=== PATIENT | female | born 1965 | race Caucasian/White ===

== ENCOUNTER 2017-06-08 00:41 | Inpatient (IN) | payer OTHER ==
[~2017-06-08] VITALS: Ht 165.1 cm; Wt 121.5 kg
--- NOTE | ~2017-06-08 | EKG ---
[address] [place] [address] ELECTROCARDIOGRAM REPORT Name: FRANCHESCA CHANDLER Room #: 359-P [facility] IN M.R.#: [id number] Admission: 06/08/17 Attend Phys: Dl Ramirez MD Discharge: 06/08/17 Date of : 69 Report #: [id number] THIS REPORT FOR: //name// [facility] Test Date: 2017-06-08 Test Time: 03:56:55 Pat Name: FRANCEHSCA CHANDLER Department: Room: 359 Gender: F Char Conveyor Tender: quintin carlson : 1965 Requested By: Ca Henao Order Number: [id number] MD: Thomas Zapata Measurements Intervals [place] Rate: 86 P: 47 SC: 145 QRS: -7 QRSD: 77 T: 4 QT: 366 QTc: 438 Interpretive Statements Sinus rhythm Inferior infarct, old Poor R wave progression Compared to ECG 06/11/2015 19:49:21 Inferior Q waves are more prominent Electronically Signed On 06-10-2017 7:23:45 ENVELOPE STUFFER by Thomas Zapata [email or web address] <ELECTRONICALLY SIGNED> By: Thomas Zapata MD, [facility] 06/10/17 0723 0356 0356 Thomas Zapata MD, [facility] /EPI
--- NOTE | ~2017-06-08 | 2DMMODE ---
[facility] [address] [address] 2 D/M-MODE ECHOCARDIOGRAM Name: CHANDLERFRANCHESCA O Room #: 359-P [facility] IN ..#: [id number] Admission: 06/08/17 Attend Phys: Dl Ramirez, Discharge: Date of : 69 Date of Service: 06/08/17 1246 Report #: [id number] THIS REPORT FOR: //name// APPROVED REPORT Study performed: 06/08/2017 09:08:51 EXAM: Comprehensive 2D, Doppler, and color-flow Echocardiogram Patient Location: Bedside Room #: 359 Status: routine BSA: 2.24 HR: 71 bpm BP: 103/63 mmHg Other Information Study Quality: Adequate Indications CAD Chest Pain Hypertension/HDD 2D Dimensions RVDd: 28.14 mm LVEF(%): 65.99 (>50%) IVSd: 11.10 (7-11mm) LVOT Diam: 17.96 (18-24mm) LVDd: 36.49 mm PWd: 12.15 (7-11mm) Ascending Ao: 25.72 (22-36mm) LVDs: 23.50 (25-40mm) Aortic Root: 27.68 mm IVC: 18.00 mm Brandon's LVEF: 65.99 % Volumes Left Atrial Volume (Systole) Single Plane 4CH: 21.97 mL Single Plane 2CH: 34.37 mL LA ESV Index: 13.00 mL/m2 Aortic Valve AoV Peak Luis.: 1.58 m/s AO Peak Gr.: 9.98 mmHg LVOT Max P.56 mmHg LVOT Max V: 1.28 m/s FILIPE Vmax: 2.05 cm2 Mitral Valve E/A Ratio: 0.9 [facility] [place] [address] 2 D/M-MODE ECHOCARDIOGRAM Name: FRANCHESCA CHANDLER Room #: 359-P [facility] IN ..#: [id number] Admission: 06/08/17 Attend Phys: Dl Ramirez, Discharge: Date of : 69 Date of Service: 06/08/17 1246 Report #: [id number] MV Decel. Time: 153.32 ms MV E Max Luis.: 0.81 m/s MV A Luis.: 0.93 m/s MV PHT: 44.46 ms IVRT: 86.51 ms Pulmonary Valve PV Peak Luis.: 1.22 m/s PV Peak Gr.: 5.97 mmHg Pulmonary Vein P Vein S: 0.51 m/s P Vein A: 0.31 m/s P Vein D: 0.36 m/s P Vein A Dur.: 100.3 msec P Vein S/D Ratio: 1.42 Tricuspid Valve RAP Estimate: 5.00 mmHg Left Ventricle The left ventricle is normal size. There is normal left ventricular wall thickness. The overall left ventricular systolic function appears normal. LVEF is 55-60%. Mild diastolic dysfunction is present (impaired relaxation pattern). Right Ventricle The right ventricle is normal size. The right ventricular systolic function is normal. Atria The left atrium size is normal. The right atrium size is normal. Aortic Valve The aortic valve is normal in structure. No aortic regurgitation is present. There is no aortic valvular stenosis. Mitral Valve The mitral valve is normal in structure. There is no mitral valve regurgitation noted. No evidence of mitral valve stenosis. Tricuspid Valve The tricuspid valve is normal in structure. There is no tricuspid valve regurgitation noted. Unable to assess PA pressure. Pulmonic Valve The pulmonary valve is normal in structure. There is no pulmonic valvular regurgitation. [address] [address] 2 D/M-MODE ECHOCARDIOGRAM Name: FRANCHESCA CHANDLER Gladis Room #: 359-P [facility] IN [facility]#: [id number] Admission: 06/08/17 Attend Phys: Dl Ramirez, Discharge: Date of : 69 Date of Service: 06/08/17 1246 Report #: [id number] Great Vessels The aortic root is normal in size. IVC is normal in size and collapses >50% with inspiration. Pericardium There is no pericardial effusion. <Conclusion> The left ventricle is normal size. LVEF is 55-60%. Mild diastolic dysfunction is present (impaired relaxation pattern). The left atrium size is normal. The right atrium size is normal. There is no aortic valvular stenosis. There is no tricuspid valve regurgitation noted. Unable to assess PA pressure. The aortic root is normal in size. There is no pericardial effusion. There is no mitral valve regurgitation noted. <ELECTRONICALLY SIGNED> By: Bryn Charles MD, FACC 06/08/17 1246 1246 1246 Bryn Charles MD, FACC /INF
--- NOTE | ~2017-06-08 | HC ---
[facility] [place] [address] CONSULTATION Name: FRANCHESCA CHANDLER Gladis Room #: 359-P [facility] IN M.R.#: [id number] Admission: 06/08/17 Attend Phys: Dl Ramirez MD Discharge: 06/08/17 Date of : 69 Report #: [id number] THIS REPORT FOR: //name// CC: Dl Velasquez HISTORY OF PRESENT ILLNESS: The patient is a 52-year-old female. Longstanding history of lupus. Was lost to Cardiology followup. Had seen Dr. Flood in [place] and then went to [facility] probably a year and a half ago she states with a negative nuclear stress test. Had an LAD stent placed here 4 years ago or so. Has been doing fairly well, but no recent stress testing. Had some discomfort last night, tightness mostly right arm and into her neck and chest. This was seemed to have a pleuritic component to it. She stated she has been more fatigued lately, but otherwise has not had any recurrent chest pain. She has disability, but she still remains active. She takes care of her grandkids. She does not take any remittive agents for her lupus and does follow with Dr. Garcia. She was treated with fentanyl at [facility] and this has resolved. He sees that nitro had no effect on this. EKG is sinus rhythm, delayed R waves, looks like possible old anterior septal infarct and she had anterior hypokinesis at the catheterization 4 years ago. She has been maintained on metformin 500 b.i.d., hydrocodone, Soma, Elavil, levothyroxine, Ativan, Coreg 6.25 b.i.d., Lipitor 40, valsartan not sure of the dose, she believes 80 or 160, ranitidine, Cymbalta and Plavix, although she is also now on Invokana 10 mg a day. PAST MEDICAL HISTORY: Positive for the lupus, coronary artery disease with cardiac stent 2013, mild ischemic cardiomyopathy with anterior apical hypokinesis, hypertension, diabetes, obesity, Sjogren's, fibromyalgia, restless leg, DJD. SOCIAL HISTORY: She is , children are grown, takes care of her grandkids. She has disability. Social alcohol, no tobacco. FAMILY HISTORY: Negative for premature coronary disease. PHYSICAL EXAMINATION: VITAL SIGNS: Blood pressure 110/62, pulse 90. HEENT: Eyes reveal xanthelasmas. Pharynx is clear. NECK: Shows preserved upstrokes without JVD or bruits. LUNGS: Clear. CARDIOVASCULAR: Regular rate and rhythm, S1, S2. ABDOMEN: Soft. No HSM or abdominal bruit. EXTREMITIES: Reveal trace edema. Distal pulses were intact. NEUROLOGIC: Nonfocal. SKIN: Warm and dry without xanthoma or ulcer. There is a faint malar rash on her face. MUSCULOSKELETAL: There is some valgus deformity of the knees, but no inflamed joints. I did not ambulate her. [address] [address] CONSULTATION Name: RAMESHFRANCHESCA Gladis Room #: 359-P [facility] IN M.R.#: [id number] Admission: 06/08/17 Attend Phys: Dl Ramirez MD Discharge: 06/08/17 Date of : 69 Report #: [id number] LABORATORY WORK: Creatinine 1.0, potassium 3.9. GFR is 59. Troponin is negative x 2. Lipids are pending. Hemoglobin and hematocrit is 12 and 39, white count 11.4, platelets 214. ASSESSMENT: 1. Chest pain with pleuritic component, unclear etiology. 2. Coronary artery disease by history with 2014 LAD stent. 3. Mild ischemic cardiomyopathy by history. No heart failure, functional class 1. 4. Systemic lupus erythematosus. 5. Diabetes. 6. Hypertension. 7. Hypercholesterolemia. 8. Obesity. RECOMMENDATIONS AND PLAN: She is pain free. We will check echo Doppler. She feels well. She is ambulating in the fields without incident. This is atypical and was not her presentation at her last stent. Would encourage to favor outpatient nuclear stress testing. We will allow her ambulate and discussed with primary, obtained echo Doppler, so either inpatient or outpatient nuclear testing. We will follow with you. Thank you for asking me to assist in the care of this patient. <ELECTRONICALLY SIGNED> By: Bryn Charles MD, FACC 06/24/17 1427 0907 1812 Bryn Charles MD, FACC /nt
[~2017-06-08 00:41] MED LIST: AMITRIPTYLINE100 MG PO; ASPIRIN81 M2 PO; ATIVAN1 MG PO; ATORVASTATIN CA40 MG PO; BOTOX100 UNIT INJECTION; CARISOPRODOL 3350 MG PO; COREG6.25 MG PO; CYMBALTA60 MG PO; DIOVAN HCT 80-1 EACH PO; DIOVAN40 MG PO; EFFIENT10 MG PO; FARXIGA5 MG PO; FENTANYL PA50 MCG/HR TRANSDERM; GLUCOPHAGE XR500 MG PO; LEVOTHYROXINE0.05 MG PO; LUNESTA3 MG PO; MIRAPEX0.25 MG PO; MIRAPEX0.5 MG PO; NORCO 10-325 T1 EACH PO; PHENERGAN 25 MG25 M1 PO; PILOCARPINE HC7.5 MG PO; PLAVIX 75 MG TA75 M1 PO; TOPAMAX 100 MG100 MG PO; ZANTAC 150MG T150 MG PO; [UNRECOGNIZED DRUG - OTHER] PO
[2017-06-08 01:30] VITALS: BP 132/80
[2017-06-08] MEDS ORDERED: VITAMIN D2000 UNIT PO (02:30)
[2017-06-08] MEDS ORDERED: ULTRAM 50MG TAB50 MG PO (02:34)
[2017-06-08] MEDS ORDERED: BUSPIRONE HCL10 MG PO (02:36)
[2017-06-08] MEDS ORDERED: INVOKANA300 MG PO (02:37)
[2017-06-08] MEDS ORDERED: FLEXERIL PO (02:40)
[2017-06-08] MEDS ORDERED: LANTUS100 UNIT/M SUBQ (02:47)
[2017-06-08] MEDS ORDERED: VISTARIL 25 MG25 M1 PO (02:47)
[2017-06-08] MEDS ORDERED: MOBIC15 MG PO (02:48)
[2017-06-08] MEDS ORDERED: PRILOSEC 20 MG20 MG PO (02:49)
[2017-06-08] MEDS ORDERED: BELSOMRA5 MG PO (02:49)
[2017-06-08] MEDS ORDERED: TOPAMAX 100 MG100 MG PO (02:50)
[2017-06-08] MEDS ORDERED: HYDROCODON-ACE1 EAC5 PO (02:57)
[2017-06-08] MEDS ORDERED: TORADOL 10 MG T10 MG PO (03:12)
[2017-06-08] MEDS ORDERED: BYDUREON P2 MG/0.65 IM (03:13)
[2017-06-08] MEDS ORDERED: BYDUREON P2 MG/0.65 SUBQ (03:15)
[2017-06-08 04:50] VITALS: BP 137/83
[2017-06-08 06:41] LABS: TROPONIN-I < 0.04 ng/mL (<0.06)
[2017-06-08 07:51] LABS: HEMATOCRIT 39.4 % (37.0-47.0); HEMOGLOBIN 12.5 gm/dL (12.0-15.0); MCH 27.7 pg (26.0-34.0); MCHC 31.8 g/dL (28.0-37.0); MCV 87.1 fL (80.0-100.0); RBC 4.52 mil/uL (4.20-5.00); RDW 14.9 % (10.5-14.5); WBC 11.4 thou/uL (4.0-11.0)
[2017-06-08 07:58] LABS: CALCIUM 9.1 mg/dL (8.5-10.1); POTASSIUM 3.9 mmol/L (3.5-5.1)
[2017-06-08 08:38] VITALS: BP 103/63
[2017-06-08 09:11] LABS: CHOLESTEROL 149 mg/dL (<200); HDL CHOLESTEROL 54 mg/dL (>40); LDL CHOLESTEROL 72 mg/dL (<100); TC:HDL 2.8 Ratio (Not establshd); TRIGLYCERIDE 117 mg/dL (<150); VLDL 23 mg/dL (<40)
[2017-06-08 12:45] VITALS: BP 113/50
[2017-06-08 16:19] VITALS: BP 113/50
[2017-06-08 16:55] VITALS: BP 113/50
[2017-06-08 20:09] LABS: GLYCOHEMOGLOBIN (HGB A1C) 9.5 % (4.8-5.6)
[2017-06-08 21:10] LABS: GLYCOHEMOGLOBIN (HGB A1C) 9.5 % (4.8-5.6)
== END 2017-06-08 16:49 | disposition home or self-care (01) | DRG 313 ==
LOC: 3W 00:41
PROVIDERS: Nurse Practitioner; Nurse Practitioner Gerontology
DX: R07.89 Other chest pain (principal); Z68.41 Body mass index [BMI] 40.0-44.9, adult; E11.9 Type 2 diabetes mellitus without complications; I25.10 Atherosclerotic heart disease of native coronary artery without angina pectoris; I10 Essential (primary) hypertension; E03.9 Hypothyroidism, unspecified; M32.9 Systemic lupus erythematosus, unspecified; G25.81 Restless legs syndrome; E66.01 Morbid (severe) obesity due to excess calories; M79.7 Fibromyalgia; I25.5 Ischemic cardiomyopathy; M19.90 Unspecified osteoarthritis, unspecified site; E78.00 Pure hypercholesterolemia, unspecified; Z90.710 Acquired absence of both cervix and uterus; Z95.5 Presence of coronary angioplasty implant and graft; Z82.49 Family history of ischemic heart disease and other diseases of the circulatory system; Z83.3 Family history of diabetes mellitus; Z80.9 Family history of malignant neoplasm, unspecified; Z82.3 Family history of stroke; Z88.1 Allergy status to other antibiotic agents; Z88.8 Allergy status to other drugs, medicaments and biological substances
CPT/HCPCS: 10879

== ENCOUNTER 2018-05-26 15:50 | Inpatient (IN) | payer OTHER ==
[~2018-05-26] VITALS: Ht 5 cm; Wt 123.2 kg
--- NOTE | ~2018-05-26 | HC ---
[facility] [place] [place] [address] CONSULTATION Name: FRANCHESCA CHANDLER Gladis Room #: 217-P [facility] IN M.R.#: [id number] Admission: 05/26/18 Attend Phys: Dl Ramirez MD Discharge: Date of : 69 Report #: [id number] THIS REPORT FOR: //name// CC: Dl SYED PCP DATE OF SERVICE: 05/26/2018 CARDIOLOGY CONSULT: HISTORY OF PRESENT ILLNESS: A 53-year-old female who I actually have seen once in the past is followed intermittently by my group. She comes in with intermittent chest pain, left arm pain basically with numbness occurring since the last couple of weeks, but worse today. Enzymes are negative. There are no acute EKG changes. She had a nuclear test a year ago that was negative for ischemia and that was at [facility]. Her troponin is negative. Her EKG has nonspecific changes. She has had no syncope or presyncope. She is not terribly active. She has underlying obesity and Sjogren's. Apparently, has been compliant with medications. She is pain free. She did receive Lovenox and was borderline hypotensive, so no nitro. LABORATORY DATA: Potassium 3.3, creatinine 1.2, sugars 256. Troponin is negative. H and H are 13 and 41. Chest x-ray, slight elevation of the right hemidiaphragm, minimal atelectasis. PAST MEDICAL HISTORY: Positive for the hypertension, diabetes, hysterectomy, DJD, tonsillectomy, lupus, fibromyalgia, coronary artery disease with a stent placed in 2014 to the LAD, diabetes. HOME MEDICATIONS: Have been metformin, atorvastatin, carvedilol, fentanyl, valsartan, buspirone 15 b.i.d., Invokana 300, insulin, omeprazole, ____, and Toradol. ALLERGIES: CELEBREX, KEFLEX, AUGMENTIN. SOCIAL HISTORY: , with children. No current tobacco. Social alcohol. She does have disability. FAMILY HISTORY: Negative for premature coronary artery disease. PHYSICAL EXAMINATION: VITAL SIGNS: Blood pressure 106/70, pulse 90. HEENT: Eyes reveal xanthelasmas. Pharynx is clear. NECK: Shows preserved upstrokes without JVD, bruits. LUNGS: Clear. CARDIOVASCULAR: Regular rate and rhythm, S1, S2 distant. [facility] [address] [place] [address] CONSULTATION Name: FRANCHESCA CHANDLER Room #: 217-P [facility] IN M.R.#: [id number] Admission: 05/26/18 Attend Phys: Dl Ramirez MD Discharge: Date of : 69 Report #: [id number] ABDOMEN: Soft, obese, nontender. EXTREMITIES: Trace of edema. Distal pulses diminished, but intact. NEUROLOGIC: Nonfocal. SKIN: Warm and dry without xanthoma or ulcer. MUSCULOSKELETAL: Generalized arthritic changes. Mild valgus deformity of the knees. ASSESSMENT: 1. Chest pain consistent with prior angina. 2. Coronary artery disease with history of LAD stent in 2013. 3. Hypertension. 4. Hypercholesterolemia. 5. Obesity. 6. Diabetes. RECOMMENDATIONS AND PLAN: Due to the nature of her symptoms here in an accelerating pattern, we will proceed to the catheterization lab. Dr. Bey had performed a radial intervention. I will ask him to perform catheterization on this patient in the morning. Risks, benefits, alternatives were discussed. We will repeat EKG and obtain echo Doppler in the morning. She will receive a shot of Lovenox tonight, she is pain free and there is no current injury. Thank you for asking me to assist in the care of this patient. By: 2056 0046 Bryn Charles MD, FACC /nt
[2018-05-26 15:50] VITALS: BP 97/48
[~2018-05-26 15:50] MED LIST changes: +BELSOMRA5 MG PO; +BUSPIRONE HCL10 MG PO; +BYDUREON P2 MG/0.65 IM; +BYDUREON P2 MG/0.65 SUBQ; +FLEXERIL PO; +HYDROCODON-ACE1 EAC5 PO; +INVOKANA300 MG PO; +LANTUS100 UNIT/M SUBQ; +MOBIC15 MG PO; +PRILOSEC 20 MG20 MG PO; +TORADOL 10 MG T10 MG PO; +ULTRAM 50MG TAB50 MG PO; +VISTARIL 25 MG25 M1 PO; +VITAMIN D2000 UNIT PO
--- NOTE | 2018-05-26 16:16 | NUR ---
ASSUMED PT CARE FROM HANSEL ARAUJO C/O CHEST PAIN STARED LAST NIGHT, FEELS LIKE HER ARMS ARE HEAVY. DENIES SOA. SEE FULL ASSESSMENT
[2018-05-26 16:22] LABS: ABSOLUTE NEUTROPHILS 3.8 thou/uL (1.4-8.2); BASOPHILS 0.6 % (0.0-2.0); HEMATOCRIT 41.4 % (37.0-47.0); HEMOGLOBIN 13.7 gm/dL (12.0-15.0); MCH 29.5 pg (26.0-34.0); MCHC 33.1 g/dL (28.0-37.0); MCV 89.1 fL (80.0-100.0); MONOCYTES 4.5 % (1.0-8.0); PLATELET COUNT 189 thou/uL (150-400); POLYS 51.9 % (36.0-66.0); RBC 4.65 mil/uL (4.20-5.00); RDW 14.1 % (10.5-14.5); WBC 7.4 thou/uL (4.0-11.0)
--- NOTE | 2018-05-26 16:22 | NUR ---
LEFT SIDED B/P 105/59, HR 87 RIGHT SIDED B/P 104/59 HR 84
[2018-05-26 16:30] LABS: ANION GAP 9 mmol/L (7-16); BUN 13 mg/dL (7-18); CALCIUM 9.7 mg/dL (8.5-10.1); CHLORIDE 101 mmol/L (98-107); CO2 27 mmol/L (21-32); CREATININE 1.2 mg/dL (0.6-1.0); GLUCOSE 256 mg/dL (74-106); POTASSIUM 3.3 mmol/L (3.5-5.1); SODIUM 137 mmol/L (136-145)
[2018-05-26 16:40] LABS: ALBUMIN 3.4 g/dL (3.4-5.0); SGOT 86 U/L (15-37); SGPT 89 U/L (30-65); TOTAL BILIRUBIN 0.5 mg/dL (<0.1-1.0); TROPONIN-I <0.06 ng/mL (<0.06)
--- NOTE | 2018-05-26 16:55 | EKG ---
[place] [address] [address] [place] [address] ELECTROCARDIOGRAM REPORT Name: RAMESHFRANCHESCA [id number] Admission: 05/26/18 Attend Phys: Discharge: Date of : 69 Report #: [id number] THIS REPORT FOR: //name// [facility] ED Test Date: 2018-05-26 Test Time: 15:59:50 Pat Name: FRANCHESCA CHANDLER Department: Room: Gender: F Technical Maintenance Technician: MANFREDSyed : 1965 Requested By: Twin Jones Order Number: [id number] MD: Thomas Zapata Measurements Intervals [place] Rate: 94 P: 54 [place]: 149 QRS: -8 QRSD: 83 T: 2 QT: 353 QTc: 442 Interpretive Statements Sinus rhythm Inferior infarct, old Compared to ECG 06/08/2017 03:56:55 No significant change was found Electronically Signed On 05-26-2018 16:55:32 RESEARCH CONSULTANT by Thomas Zapata [email or web address] <ELECTRONICALLY SIGNED> By: Thomas Zapata MD, [facility] 05/26/18 1655 1559 1559 Thomas Zapata MD, FACC /EPI
[2018-05-26 19:11] VITALS: BP 101/54
[2018-05-26 19:15] VITALS: BP 104/69
[2018-05-26 19:58] VITALS: BP 131/71
[2018-05-26] MEDS ORDERED: OZEMPIC1 MG/0.75 SUBQ (20:37)
[2018-05-27] VITALS (17 sets, daily range): BP systolic 90–137; BP diastolic 48–90
[2018-05-27 04:42] LABS: ALBUMIN 2.8 g/dL (3.4-5.0); ANION GAP 9 mmol/L (7-16); BUN 13 mg/dL (7-18); CALCIUM 8.9 mg/dL (8.5-10.1); CHLORIDE 104 mmol/L (98-107); CHOLESTEROL 144 mg/dL (<200); CO2 26 mmol/L (21-32); GLUCOSE 266 mg/dL (74-106); HDL CHOLESTEROL 39 mg/dL (>40); LDL CHOLESTEROL 56 mg/dL (<100); POTASSIUM 3.3 mmol/L (3.5-5.1); SGOT 49 U/L (15-37); SGPT 69 U/L (30-65); SODIUM 139 mmol/L (136-145); TC:HDL 3.7 Ratio (Not establshd); TOTAL BILIRUBIN 0.4 mg/dL (<0.1-1.0); TOTAL PROTEIN 6.7 g/dL (6.4-8.2); TRIGLYCERIDE 246 mg/dL (<150); TROPONIN-I <0.06 ng/mL (<0.06); VLDL 49 mg/dL (<40)
[2018-05-27 04:43] LABS: ABSOLUTE NEUTROPHILS 3.5 thou/uL (1.4-8.2); BASOPHILS 0.5 % (0.0-2.0); EOSINOPHILS 2.1 % (0.0-3.0); HEMATOCRIT 38.4 % (37.0-47.0); HEMOGLOBIN 12.4 gm/dL (12.0-15.0); LYMPHOCYTES 43.2 % (24.0-44.0); MCH 28.9 pg (26.0-34.0); MCHC 32.3 g/dL (28.0-37.0); MCV 89.5 fL (80.0-100.0); MONOCYTES 5.6 % (1.0-8.0); PLATELET COUNT 172 thou/uL (150-400); POLYS 48.6 % (36.0-66.0); RBC 4.29 mil/uL (4.20-5.00); RDW 14.3 % (10.5-14.5); WBC 7.2 thou/uL (4.0-11.0)
--- NOTE | 2018-05-27 06:22 | NUR ---
ASSUMED CARE OF PATIENT AROUND 2100. PATIENT ARRIVED FROM ER VIA CART W/ TECH TO ROOM 217. PATIENT ADMITTED, CONSENTS SIGNED. PT C/O 11/05 CHEST HEAVINESS WITH NECK NUMBNESS. PT STATES "NOTHING RELIEVES OR EXACERBATES PAIN." MOST OF HOME MEDICATIONS RESTARTED. PATIENT ABLE TO REST MOST OF NIGHT. PRE CATH CHECK LIST COMPLETED, CATH CONSENT SIGNED. ORDERS NOTED FROM CRM ADMINISTRATOR AND DR INMAN. PATIENT ANXIOUS ABOUT PROCEDURE, EDUCATION AND REASSURANCE GIVEN. PT STATES SHE FEELS MORE COMFORTABLE. PROGRESSING TOWARD GOALS, WILL CONTINUE TO MONITOR.
--- NOTE | 2018-05-27 08:18 | EKG ---
[address] [address] ELECTROCARDIOGRAM REPORT Name: CHANDLERFRANCHESCA Room #: 217-P ADM IN M.R.#: [id number] Admission: 05/26/18 Attend Phys: Dl Ramirez MD Discharge: Date of : 69 Report #: [id number] THIS REPORT FOR: //name// [facility] Test Date: 2018-05-26 Test Time: 20:25:12 Pat Name: FRANCHESCA CHANDLER Department: Room: 217 Gender: F Livestock Laborer: Chapin HEAD : 1965 Requested By: Bryn Charles Order Number: [id number] MD: Thomas Zapata Measurements Intervals [place] Rate: 89 P: 37 MI: 154 QRS: -12 QRSD: 82 T: 2 QT: 360 QTc: 439 Interpretive Statements Sinus rhythm Inferior infarct, old Compared to ECG 05/26/2018 15:59:50 No significant changes Electronically Signed On 05-27-2018 8:18:04 CEMENT RUBBER by Thomas Zapata [email or web address] <ELECTRONICALLY SIGNED> By: Thomas Zapata MD, [facility] 05/27/18 0818 24 24 Thomas Zapata MD, [facility] /EPI
--- NOTE | 2018-05-27 08:19 | EKG ---
[address] [place] [address] ELECTROCARDIOGRAM REPORT Name: FRANCHESCA CHANDLER Room #: 217-P ADM IN M.R.#: [id number] Admission: 05/26/18 Attend Phys: Dl Ramirez MD Discharge: Date of : 69 Report #: [id number] THIS REPORT FOR: //name// [facility] Test Date: 2018-05-27 Test Time: 07:20:32 Pat Name: FRANCHESCA CHANDLER Department: Room: 217 P Gender: F Broadband Engineer: NAHID : 1965 Requested By: Bryn Charles Order Number: [id number] MD: Thomas Zapata Measurements Intervals [place] Rate: 91 P: 41 NE: 149 QRS: -7 QRSD: 95 T: 3 QT: 361 QTc: 445 Interpretive Statements Sinus rhythm Borderline T abnormalities, inferior leads Inferior infarct, old Compared to ECG 05/26/2018 15:59:50 No significant change was found Electronically Signed On 05-27-2018 8:19:34 EVENT SECURITY OFFICER by Thomas Zapata [email or web address] <ELECTRONICALLY SIGNED> By: Thomas Zapata MD, [facility] 05/27/18818 9 9 Thomas Zapata MD, [facility] /EPI
--- NOTE | 2018-05-27 08:53 | 2DMMODE ---
[place] [address] [facility] [place] [address] 2 D/M-MODE ECHOCARDIOGRAM Name: RAMESHFRANCHESCA Room #: 217-P [facility] IN ..#: [id number] Admission: 05/26/18 Attend Phys: Dl Ramirez, Discharge: Date of : 69 Date of Service: 05/27/18 0852 Report #: [id number] THIS REPORT FOR: //name// APPROVED REPORT Study performed: 05/27/2018 08:09:13 EXAM: Comprehensive 2D, Doppler, and color-flow Echocardiogram Patient Location: Bedside Room #: 217 Status: routine BSA: 2.26 HR: 95 bpm BP: 95/50 mmHg Rhythm: NSR Other Information Study Quality: Adequate Indications Abnormal EKG, chest pain. Pre angiogram. Hx: RI, stent, HTN, HLP, DM, morbid obesity. 2D Dimensions RVDd: 31.70 mm IVSd: 10.34 (7-11mm) LVOT Diam: 19.55 (18-24mm) LVDd: 41.22 mm PWd: 10.68 (7-11mm) Ascending Ao: 26.14 (22-36mm) LVDs: 27.01 (25-40mm) Aortic Root: 28.65 mm Volumes Left Atrial Volume (Systole) Single Plane 4CH: 35.67 mL Single Plane 2CH: 39.36 mL LA ESV Index: 18.00 mL/m2 Aortic Valve AoV Peak Luis.: 1.49 m/s AO Peak Gr.: 8.91 mmHg LVOT Max P.84 mmHg LVOT Max V: 1.21 m/s FILIPE Vmax: 2.43 cm2 Mitral Valve E/A Ratio: 0.9 MV Decel. Time: 237.88 ms MV E Max Luis.: 0.74 m/s [facility] [place] [address] 2 D/M-MODE ECHOCARDIOGRAM Name: FRANCHESCA CHANDLER Room #: 217-P [facility] IN .R.#: [id number] Admission: 05/26/18 Attend Phys: Dl Ramirez, Discharge: Date of : 69 Date of Service: 05/27/18 0852 Report #: [id number] MV A Luis.: 0.83 m/s MV PHT: 68.99 ms IVRT: 76.12 ms Pulmonary Valve PV Peak Luis.: 1.12 m/s PV Peak Gr.: 5.06 mmHg Pulmonary Vein P Vein S: 0.50 m/s P Vein A: 0.30 m/s P Vein D: 0.31 m/s P Vein A Dur.: 79.6 msec P Vein S/D Ratio: 1.61 Tricuspid Valve TR Peak Luis.: 2.20 m/s RAP Estimate: 5.00 mmHg TR Peak Gr.: 19.44 mmHg PA Pressure: 24.00 mmHg Left Ventricle The left ventricle is normal size. There is normal LV segmental wall motion. There is normal left ventricular wall thickness. Left ventricular systolic function is normal. LVEF is 55-60%. Mild diastolic dysfunction is present (impaired relaxation pattern). Right Ventricle The right ventricle is normal size. The right ventricular systolic function is normal. Atria The left atrium size is normal. The right atrium size is normal. Aortic Valve The aortic valve is normal in structure. No aortic regurgitation is present. There is no aortic valvular stenosis. Mitral Valve The mitral valve is normal in structure. There is no mitral valve regurgitation noted. No evidence of mitral valve stenosis. Tricuspid Valve The tricuspid valve is normal in structure. Trace tricuspid regurgitation. Estimated PAP is 25mmHg. [address] [address] 2 D/M-MODE ECHOCARDIOGRAM Name: FRANCHESCA CHANDLER Gladis Room #: 217-P [facility] IN [facility]#: [id number] Admission: 05/26/18 Attend Phys: Dl Ramirez, Discharge: Date of : 69 Date of Service: 05/27/18 0852 Report #: [id number] Pulmonic Valve Pulmonic valve is not well visualized. Great Vessels The aortic root is normal in size. The ascending aorta is normal in size. IVC is normal in size and collapses >50% with inspiration. Pericardium There is no pericardial effusion. <Conclusion> Left ventricular systolic function is normal. There is normal LV segmental wall motion. LVEF is 55-60%. Mild diastolic dysfunction The aortic valve is normal in structure. No aortic regurgitation or stenosis The mitral valve is normal in structure. No mitral valve regurgitation. Trace tricuspid regurgitation. Estimated pulmonary artery pressure of 25mmHg. There is no pericardial effusion. <ELECTRONICALLY SIGNED> By: Thomas Zapata MD, [facility] 05/27/1852 1 1 Thomas Zapata MD, FACC /INF
--- NOTE | 2018-05-27 15:53 | NUR ---
ASSUMED CARE OF PT AT 0700 THIS SHIFT. PT HAS BEEN COOPERATIVE, HAS HAD PERSISTENT CHEST PAIN. PT HAD CATH DONE THIS SHIFT, RIGHT RADIAL SITE IS INTACT. PT NOW FEELS BETTER, AND IS WANTING TO GO HOME. ASSESSMENTS ARE DOCUMENTED. PT HAS HAD FAMILY VISIT, EDUCATION HAS BEEN PROVIDED. PLAN OF CARE IS TO DISCHARGE PT THIS SHIFT.
--- NOTE | 2018-05-27 15:59 | CATHLAB ---
[place] [address] [address] [facility] [place] [place] [address] INVASIVE PROCEDURE REPORT Name: CHANDLERFRANCHESCA Room #: 217-P [facility]#: [id number] Admission: 05/26/18 Attend Phys: Dl Ramirez, Discharge: Date of : 69 Date of Service: 05/27/18 1558 Report #: [id number] THIS REPORT FOR: //name// APPROVED REPORT Study performed: 05/27/2018 09:16:26 Patient Details Patient Status: In-Patient Room #: The patient is a 53 year-old female Event Personnel Nico Bey Professional Bass Fisherman, Rachna Camarillo RN RN, Emma Up RTR, Tenzin Castro David Monitor Procedures Performed Left Heart Cath w/or w/o Coronaries [id number] [facility] Indication Dyspnea, Chest pain Risk Factors Obesity, Hypercholesterolemia, Coronary Artery Disease Previous Procedures/Diagnoses Previous PCI Procedure Narrative The Right Wrist^ was infiltrated with 1% Lidocaine subcutaneous anesthesia. A TRANSRADIAL SLENDER 6F GLIDESHEATH KIT #[id number] sheath was inserted into the Right Radial Artery^. Coronary angiography was performed using coronary diagnostic catheters. The right coronary system was accessed and visualized with a 5FR JR 4 #[id number] catheter. The left coronary system was accessed and visualized with a 5FR JL 3.5 #[id number] catheter. The left ventricle was accessed and visualized with a 5FR PIG 145 ANGLED #[id number] catheter. Left ventricular/Aortic Valve gradient assessed via catheter pullback. Left ventriculogram was performed in 30 degree projection. Closure device was deployed with a Fr reg. There was [facility] [address] [place] [address] INVASIVE PROCEDURE REPORT Name: FRANCHESCA CHANDLER Room #: 217-P [facility] IN [facility].#: [id number] Admission: 05/26/18 Attend Phys: Dl Ramirez, Discharge: Date of : 69 Date of Service: 05/27/18 1558 Report #: [id number] no hematoma. Intraoperative Conscious Sedation Sedation start time: 9.59 Case end Time: 10.28 Versed 1 mg Fluoro Time: 3.03 minutes Dose: DAP 4954 cGycm2 576 mGy Contrast Type and Amount: Omnipaque 105 ml Coronary Angiography The patient's coronary anatomy is right dominant. Diagnostic Cath Left Main This is a patent vessel, with no flow-limiting lesions. LAD This is a moderate to large caliber vessel, traversing the anterior wall and wrapping around the apex. There is a stent in the mid segment, widely patent with minimal restenosis. Diagonal 1 This is a patent vessel, with no flow-limiting lesions. Diagonal 2 This is a patent vessel, with no flow-limiting lesions. Circumflex This is a patent vessel, with no flow-limiting lesions. OM1 This is a patent vessel, with no flow-limiting lesions. OM2 This is a moderate size caliber vessel, patent with no flow-limiting lesions. It supplies multiple branches as it travels down the lateral wall. Right Coronary This is a dominant vessel with minimal luminal irregularities in the mid segment. R PDA This is a patent vessel, with no flow-limiting lesions. RPLV This is a patent vessel, with no flow-limiting lesions. Left Ventriculography The left ventricle is normal in size with normal contractility. The left ventricular ejection fraction is estimated to be 55-60%. Hemodynamics The aortic pressure is 105/79 mmHg with a mean of 90 mmHg. The left ventricular pressure is 120/12 mmHg with a mean of mmHg. The left ventricular end diastolic pressure is [address] [facility] [address] [place] [address] INVASIVE PROCEDURE REPORT Name: RAMESHFRANCHESCA Room #: 217-P [facility] IN .R.#: [id number] Admission: 05/26/18 Attend Phys: Dl Ramirez, Discharge: Date of : 69 Date of Service: 05/27/18 1558 Report #: [id number] 1. There is a patent stent in the mid segment of the LAD with minimal restenosis. 2. Right dominant system. 3. Normal LV systolic function. 4. Recommend aggressive risk factor management. <ELECTRONICALLY SIGNED> By: Nico Bey MD 05/27/18 1558 1558 1558 Nico Bey MD /INF
[2018-05-27 17:12] LABS: GLYCOHEMOGLOBIN (HGB A1C) 13.9 % (4.8-5.6)
[2018-05-27 19:07] LABS: GLYCOHEMOGLOBIN (HGB A1C) 13.8 % (4.8-5.6)
== END 2018-05-27 17:41 | disposition home or self-care (01) | DRG 287 ==
LOC: ER 15:50 → 2N 17:38 → EROBS 17:38 → 2N 19:30 → ENTRNSPT 05-27 17:35 → 2N 05-27 17:41
PROVIDERS: Internal Medicine Cardiovascular Disease; Nurse Practitioner; Physician Assistant; ADMIT Internal Medicine
DX: R07.89 Other chest pain (principal); N17.9 Acute kidney failure, unspecified; I25.10 Atherosclerotic heart disease of native coronary artery without angina pectoris; M79.7 Fibromyalgia; M32.9 Systemic lupus erythematosus, unspecified; M35.00 Sjogren syndrome, unspecified; G25.81 Restless legs syndrome; I10 Essential (primary) hypertension; M19.90 Unspecified osteoarthritis, unspecified site; R79.89 Other specified abnormal findings of blood chemistry; K21.9 Gastro-esophageal reflux disease without esophagitis; E78.00 Pure hypercholesterolemia, unspecified; E66.9 Obesity, unspecified; E87.6 Hypokalemia; I25.2 Old myocardial infarction; Z95.5 Presence of coronary angioplasty implant and graft; Z90.49 Acquired absence of other specified parts of digestive tract; Z90.710 Acquired absence of both cervix and uterus; Z79.4 Long term (current) use of insulin; Z79.84 Long term (current) use of oral hypoglycemic drugs; Z79.899 Other long term (current) drug therapy; Z88.1 Allergy status to other antibiotic agents; Z88.8 Allergy status to other drugs, medicaments and biological substances; Z82.49 Family history of ischemic heart disease and other diseases of the circulatory system; Z98.61 Coronary angioplasty status
CPT/HCPCS: 10081

== ENCOUNTER 2018-07-16 17:01 | Inpatient (IN) | payer OTHER ==
[~2018-07-16] VITALS: Ht 165.1 cm; Wt 116.4 kg
[~2018-07-16 17:01] MED LIST changes: -COREG6.25 MG PO; +OZEMPIC1 MG/0.75 SUBQ
[2018-07-16 17:09] VITALS: BP 85/37
[2018-07-16] MEDS ORDERED: ATIVAN1 MG PO (17:55)
[2018-07-16 17:56] LABS: ABSOLUTE NEUTROPHILS 6.2 thou/uL (1.4-8.2); BASOPHILS 0.3 % (0.0-2.0); EOSINOPHILS 2.4 % (0.0-3.0); HEMATOCRIT 35.8 % (37.0-47.0); HEMOGLOBIN 11.6 gm/dL (12.0-15.0); MCHC 32.5 g/dL (28.0-37.0); MCV 89.2 fL (80.0-100.0); MONOCYTES 4.8 % (1.0-8.0); PLATELET COUNT 161 thou/uL (150-400); POLYS 67.5 % (36.0-66.0); RBC 4.01 mil/uL (4.20-5.00); RDW 14.9 % (10.5-14.5); WBC 9.2 thou/uL (4.0-11.0)
[2018-07-16] MEDS ORDERED: HYDROCHLOROTH12.5 M1 PO (17:58)
[2018-07-16 18:03] LABS: ANION GAP 10 mmol/L (7-16); BUN 31 mg/dL (7-18); CALCIUM 9.3 mg/dL (8.5-10.1); CHLORIDE 102 mmol/L (98-107); CO2 27 mmol/L (21-32); CREATININE 2.3 mg/dL (0.6-1.0); GLUCOSE 154 mg/dL (74-106); POTASSIUM 4.1 mmol/L (3.5-5.1); SODIUM 139 mmol/L (136-145)
[2018-07-16 18:12] LABS: ALBUMIN 2.9 g/dL (3.4-5.0); SGOT 35 U/L (15-37); SGPT 55 U/L (30-65); TOTAL BILIRUBIN 0.4 mg/dL (<0.1-1.0); TOTAL PROTEIN 7.3 g/dL (6.4-8.2); TROPONIN-I <0.06 ng/mL (<0.06)
[2018-07-16 20:16] VITALS: BP 93/73
[2018-07-16 20:17] LABS: URINE BILIRUBIN NEGATIVE (Negative); URINE BLOOD NEGATIVE (Negative); URINE CLARITY SL CLOUDY; URINE COLOR YELLOW; URINE GLUCOSE-RANDOM* 1+ (Negative); URINE KETONES NEGATIVE (Negative); URINE LEUKOCYTES-REFLEX NEGATIVE (Negative); URINE NITRITE-REFLEX NEGATIVE (Negative); URINE PROTEIN (DIPSTICK) NEGATIVE (Negative); URINE UROBILINOGEN 0.2 E.U./dl (0.2-1.0)
[2018-07-16 20:26] LABS: AMP/METHAMP Negative (Negative); BARBITURATES Negative (Negative); BENZODIAZEPINES Negative (Negative); COCAINE Negative (Negative); METHADONE Negative (Negative); OPIATES Negative (Negative); PCP Negative (Negative)
[2018-07-16 20:55] VITALS: BP 104/68
[2018-07-16 21:19] VITALS: BP 93/58
[2018-07-17] VITALS (9 sets, daily range): BP systolic 76–120; BP diastolic 41–76
[2018-07-17] MEDS ORDERED: NEURONTIN600 MG PO (01:05)
[2018-07-17] MEDS ORDERED: MAXZIDE-25 MG1 EACH PO (01:11)
--- NOTE | 2018-07-17 03:06 | NUR ---
Admission history and assessments completed. Care plan initiated. High fall risk, fall precautions in place. Patient uses call light appropriately for needs. IVFluids infusing. Rhythm and vital signs stable.
[2018-07-17 04:50] LABS: CALCIUM 8.5 mg/dL (8.5-10.1); CREATININE 1.8 mg/dL (0.6-1.0); MAGNESIUM 2.2 mg/dL (1.8-2.4); POTASSIUM 4.3 mmol/L (3.5-5.1)
--- NOTE | 2018-07-17 17:54 | EKG ---
[address] [place] [place] [address] ELECTROCARDIOGRAM REPORT Name: FRANCHESCA CHANDLER Room #: 351-P ADM IN M.R.#: [id number] ������������������ Admission: 07/16/18 ������������������ Attend Phys: Len Salgado Discharge: ������������������ Date of : 69 Report #: [id number] ����������������������������������������������������������������� [id number] THIS REPORT FOR: //name// [facility] ED Test Date: 2018-07-16 Test Time: 17:54:26 Pat Name: FRANCHESCA CHANDLER Department: Room: [facility] Gender: F Rn Social Work: EVA : 1965 Requested By: Noemi Hightower Order Number: [id number] MD: Thomas Zapata Measurements Intervals [place] Rate: 81 P: 43 NC: 164 QRS: -4 QRSD: 86 T: 13 QT: 388 QTc: 451 Interpretive Statements Sinus rhythm Poor R wave progression Compared to ECG 05/27/2018 07:20:32 No significant change was found Electronically Signed On 07-17-2018 17:53:52 CDT by Thomas Zapata [email or web address] ��������������������������������������������� <ELECTRONICALLY SIGNED> ���������������������������������������� By: Thomas Zapata MD, [facility] ��������������������������������������������� 07/17/18 1753 175 175 Thomas Zapata MD, FACC /EPI
[2018-07-18 03:42] VITALS: BP 102/47
[2018-07-18 05:22] LABS: ALBUMIN 2.6 g/dL (3.4-5.0); CALCIUM 8.4 mg/dL (8.5-10.1); CREATININE 1.5 mg/dL (0.6-1.0); PHOSPHORUS 3.6 mg/dL (2.5-4.9); POTASSIUM 4.1 mmol/L (3.5-5.1)
[2018-07-18 07:32] VITALS: BP 100/48
[2018-07-18 07:33] VITALS: BP 95/55
[2018-07-18] MEDS ORDERED: COREG6.25 MG PO (09:59)
[2018-07-18 11:35] VITALS: BP 108/66
[2018-07-18 11:44] VITALS: BP 108/66
--- NOTE | 2018-07-18 12:06 | NUR ---
Assumed care of patient at 0700. Vitals have been stable. BP soft, but stable. Patient reports some intermittent dizziness, mainly with movement. Patient calls appropriately for assistance; up with SBA. Encouraged to take slow movements, verbalizes understanding. Complaints of chronic pain; controlled with PRN medications. Discharge orders received. Reviewed instructions, follow up appointments with patient. Verbalizes understanding. IV and telemetry discontinued. Belongings gathered. Transported to private vehicle via wheelchair to discharge home.
== END 2018-07-18 12:24 | disposition home or self-care (01) | DRG 312 ==
LOC: ER 17:01 → EROBS 19:13 → 3W 19:13
PROVIDERS: Nurse Practitioner Acute Care; Nurse Practitioner Family; ADMIT Hospitalist
DX: R55 Syncope and collapse (principal); N17.9 Acute kidney failure, unspecified; T50.905A Adverse effect of unspecified drugs, medicaments and biological substances, initial encounter; G25.81 Restless legs syndrome; I10 Essential (primary) hypertension; E11.9 Type 2 diabetes mellitus without complications; I95.9 Hypotension, unspecified; M32.9 Systemic lupus erythematosus, unspecified; G89.29 Other chronic pain; Y92.89 Other specified places as the place of occurrence of the external cause; Z90.710 Acquired absence of both cervix and uterus; Z90.49 Acquired absence of other specified parts of digestive tract; Z95.5 Presence of coronary angioplasty implant and graft; Z88.1 Allergy status to other antibiotic agents; Z88.8 Allergy status to other drugs, medicaments and biological substances; Z82.49 Family history of ischemic heart disease and other diseases of the circulatory system
CPT/HCPCS: 10879

== ENCOUNTER 2020-08-25 21:54 | Emergency (ER) | payer OTHER ==
[~2020-08-25] VITALS: Ht 165.1 cm; Wt 129.3 kg
[~2020-08-25 21:54] MED LIST changes: +COREG6.25 MG PO; +HYDROCHLOROTH12.5 M1 PO; +MAXZIDE-25 MG1 EACH PO; +NEURONTIN600 MG PO
[2020-08-25 23:00] LABS: ABSOLUTE NEUTROPHILS 4.6 thou/uL (1.4-8.2); BASOPHILS 0.4 % (0.0-2.0); EOSINOPHILS 2.6 % (0.0-3.0); HEMATOCRIT 35.5 % (37.0-47.0); HEMOGLOBIN 11.7 gm/dL (12.0-15.0); LYMPHOCYTES 28.6 % (24.0-44.0); MCH 29.2 pg (26.0-34.0); MCV 88.5 fL (80.0-100.0); MONOCYTES 8.2 % (1.0-8.0); PLATELET COUNT 180 thou/uL (150-400); POLYS 60.2 % (36.0-66.0); RBC 4.01 mil/uL (4.20-5.00); RDW 14.7 % (10.5-14.5); WBC 7.6 thou/uL (4.0-11.0)
[2020-08-25 23:03] LABS: CALCIUM 8.4 mg/dL (8.5-10.1); CREATININE 1.2 mg/dL (0.6-1.0); POTASSIUM 3.7 mmol/L (3.5-5.1)
[2020-08-25 23:09] LABS: ALBUMIN 2.6 g/dL (3.4-5.0); TOTAL BILIRUBIN 0.3 mg/dL (0.2-1.0); TOTAL PROTEIN 6.7 g/dL (6.4-8.2)
[2020-08-26 00:11] VITALS: BP 133/70
--- NOTE | 2020-08-26 07:03 | EKG ---
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 : 1965 Requested By: Ruddy Dixon Order Number: [id number] MD: Valeriy Hendricks Measurements Intervals [place] Rate: 113 P: 57 RI: 143 QRS: -3 QRSD: 62 T: 24 QT: 319 QTc: 438 Interpretive Statements Sinus tachycardia Low voltage, precordial leads Compared to ECG 07/16/2018 17:54:26 Low QRS voltage now present Sinus rhythm no longer present Poor R-wave progression no longer present Electronically Signed On 08-26-2020 7:03:45 CDT by Valeriy Hendricks [email or web address] <ELECTRONICALLY SIGNED> By: Valeriy Hendricks MD, [facility] 08/26/20 [id number] Valeriy Hendricks MD, FAC /EPI
== END 2020-08-26 00:16 | disposition home or self-care (01) ==
LOC: ER 21:54
PROVIDERS: Emergency Medicine
DX: R06.02 Shortness of breath (principal); R50.9 Fever, unspecified; T50.B95A Adverse effect of other viral vaccines, initial encounter; I10 Essential (primary) hypertension; E11.9 Type 2 diabetes mellitus without complications; Z88.1 Allergy status to other antibiotic agents; Z88.8 Allergy status to other drugs, medicaments and biological substances; Z79.84 Long term (current) use of oral hypoglycemic drugs; Z79.899 Other long term (current) drug therapy; Z90.49 Acquired absence of other specified parts of digestive tract; Z90.710 Acquired absence of both cervix and uterus